=== PATIENT | female | born 1945 | race Caucasian/White ===

== ENCOUNTER → 2019-02-28 | Outpatient (CLI) | payer MEDICARE, OTHER ==
[~2019-02-28] MED LIST: CALCIUM 600 +1 EAC1 PO; CARDIZEM CD120 MG; CARDIZEM CD360 MG PO; DEXAMETHASONE 44 M1 PO; DOESN'T HAVE LIST; HYDROCHLOROTHIA25 M2; LISINOPRIL-HCT1 EAC1 PO; LISINOPRIL20 MG; METHIMAZOLE5 MG PO; NORCO 5-325 TA1 EACH PO; POTASSIUM20; PRESERVISION A1 EAC2 PO; VALIUM5 MG PO
--- NOTE | 2019-03-08 14:54 | PATH ---
[address] [address] PATHOLOGY RPT PROCEDURE Name: BESSY SCHWARTZ Room: [facility] Jackson#: [id number] Admission: 02/28/19 Date of : 49 Discharge: Report #: [id number] Path Case #: [id number] [facility] Accession Number: [id number] . 01 Material submitted: . PART A: breast - RIGHT BREAST MASS, 10:00, 2CMFN. Modifiers: right, 10:00 PART B: lymph node - LYMPH NODE RIGHT AXILLA. Modifiers: right, axilla . 01 Clinical history: . A. 4.0 x 3.96 x 3.0 cm mass at 10 o'clock position, 2 cm FN B. 1.84 x 0.83 x 1.38 cm . 02 Diagnosis: A. 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 (SEE COMMENT). . B. Lymph node-right axilla, image-guided core biopsies: - HIGH GRADE CARCINOMA, TYPICAL OF BREAST DUCTAL PRIMARY INVOLVING FIBROFATTY TISSUE AND SPANNING AT LEAST 12 MM. (SEE COMMENT). . (BERNIE:mm; 03/01/2019) [facility]/03/01/2019 . 02 Comment: Specimen type: Image-guided core biopsies Tumor site: Right breast, 10:00, 2 cm from nipple Tumor quantitation: Greater than 95% of submitted tissues Histologic type: Ductal adenocarcinoma Histologic grade: III/III Tubules, nuclei and mitoses: 3, 3, 3 LVSI: Identified Microcalcifications: Identified in tumor and non-neoplastic tissues Markers: Breast tumor profile pending Block: A1 . . In the right breast mass biopsy (A), there is no DCIS or LCIS seen. The right axilla lymph node biopsy (B) shows minimal lymphoid tissue with no definite lymph node identified and tumor involves approximately 90% of the submitted tissues. Breast tumor profile studies are pending on A1 and will be the subject of an addendum report. Specimens A and B reviewed with Dr. Quintin Weathers who agrees with the diagnoses. Ariana Dykes ([facility] Breast Navigator) notified at approximately 1255 on 03/01/2019. . (BERNIE:mm; 03/01/2019) [place] [address] PATHOLOGY RPT PROCEDURE Name: BESSY SCHWARTZ [id number] Admission: 02/28/19 Date of : 49 Discharge: Report #: [id number] Path Case #: [id number] . 02 Addendum: . . Special studies report received from [facility], [address] [place] [address], [address], [place], [address], on case [id number], labeled with their number [id number], dated 03/07/2019. . Breast/Prognostic Marker Analysis . Specimen Site: Rt Breast,Mass, Breast cancer. Specimen ID #: [id number] . . ER (Estrogen Receptor) Present/Positive Percent: 70.00% Analysis: Manual Comments: Staining Intensity: Strong . WI (Progesterone Receptor) Present/Positive Percent: 1.00% Analysis: Manual Comments: Staining Intensity: Moderate . HER2 Over-Expressed Score: 3+ Analysis: Manual . Ki-67 High Proliferation Percent: 40.00% Analysis: Manual . Time to Fixation (Cold Ischemic Time): Not Provided Duration of Fixation: Not Provided Type of Fixative: 10% Neutral Buffered Formalin . . at [facility]. Raj Menon MD Surgical Pathologist . Methodology The HER2 Receptor protein expression is analyzed using the [place] HER2 rabbit monoclonal antibody (clone 4B5). This assay is used for diagnostic determination of the HER2 protein over-expression in paraffin embedded, [place] [address] PATHOLOGY RPT PROCEDURE Name: BESSY SCHWARTZ [id number] Admission: 02/28/19 Date of : 49 Discharge: Report #: [id number] Path Case #: [id number] formalin fixed breast cancer tissue on the [employer] Benchmark. The specimen is processed using a polymer detection system. The membrane staining of the tumor is determined either by manual score or image analysis. This antibody is intended for in vitro diagnostic use. The score is reported as per package insert; 0, 1+, 2+, and 3+. This test is used for clinical purposes. . A rabbit monoclonal antibody (clone SP1) that recognized the Estrogen Receptor is used to perform immunohistochemistry on routinely fixed (formalin) paraffin embedded tissue on the [place] Benchmark. The specimen is processed using a polymer detection system. The percentage of stained tumor nuclei is determined either manually or by image analysis. This test is intended for in vitro diagnostic use. This test is used for clinical purposes. . A rabbit monoclonal antibody (clone 1E2) that recognized the Progesterone Receptor is used to perform immunohistochemistry on routinely fixed (formalin) paraffin embedded tissue on the [place] Benchmark. The specimen is processed using a polymer detection system. The percentage of stained tumor nuclei is determined either manually or by image analysis. This test is intended for in vitro diagnostic use. This test is used for clinical purposes. . A rabbit monoclonal antibody (clone 30-9) that recognized Ki67 is used to perform immunohistochemistry on routinely fixed (formalin) paraffin embedded tissue on the [place] Benchmark. The specimen is processed using a polymer detection system. The percentage of stained tumor nuclei is determined either manually or by image analysis. This test is intended for in vitro diagnostic use. This test is used for clinical purposes. . Intended Use: This antibody is intended for in vitro diagnostic (IVD) use. HER2 (4B5) is a rabbit monoclonal antibody intended for the semi-quantitative detection of HER2 antigen in sections of formalin-fixed, paraffin embedded normal and neoplastic tissue. . This antibody is intended for in vitro diagnostic (IVD) use. Estrogen Receptor (ER) (SP1) is a rabbit monoclonal antibody (IgG) that is intended for the qualitative detection of estrogen receptor (ER) antigen in sections of formalin-fixed, paraffin-embedded tissue. ER is a rabbit monoclonal antibody that recognizes human estrogen receptor alpha. . This antibody is intended for in vitro diagnostic (IVD) use. Progesterone Receptor (WI) (1E2) is a rabbit monoclonal antibody (IgG) that is intended for the qualitative detection of progesterone receptor (WI) antigen in sections of formalin fixed, paraffin embedded tissue. WI is a rabbit monoclonal antibody that recognizes the A and B forms of the human progesterone [place] [address] PATHOLOGY RPT PROCEDURE Name: BESSY SCHWARTZ Room: [facility]#: [id number] Admission: 02/28/19 Date of : 49 Discharge: Report #: [id number] Path Case #: [id number] This antibody is intended for in vitro diagnostic (IVD) use. Ki-67 (30-9) is a rabbit monoclonal antibody (IgG) directed against C-terminal portion of Ki-67 antigen. Staining for Ki-67 can be used to aid in assessing the proliferative activity of normal and neoplastic tissue. Ki-67 is a nuclear protein expressed in proliferating cells. During the cell cycle, the Ki-67 antigen is present in the G1, S, G2 and M phase but is absent in the G0 (quiescent phase). . . Disclaimer: This Test was performed by [facility] at [address], [place] [address], [place], [address]. . [facility] is a business unit of [facility]. a wholly-owned subsidiary of [employer]. . This assay has not been validated on decalcified tissues. Results should be interpreted with caution if this specimen was decalcified given the likelihood of false negativity on decalcified specimens. . Any image(s) that accompany this report is/are a food products sales representative image(s) only and should not be used to render a diagnosis. . This interpretation is contingent on the specimen and the clinical information received. . For any special tests/stains performed, known positive cells or tissues are tested with each marker and examined to ensure positivity. Positive and negative internal controls, if present, react appropriately. . This analysis is an adjunct to the evaluation of the referring physician and does not represent a final diagnosis. . The immunohistochemistry tests performed at [facility]. were validated on tissue fixed in 10% neutral buffered formalin. The performance characteristics of the tests performed on tissue processed in other fixatives is not known. . HER2 testing at [facility]., is performed in compliance with the 2018 updated ASCO/CAP Clinical Practice Guideline Focused Update. If the result is EQUIVOCAL (2+), it must be confirmed by an alternative assay such as FISH or Dual LORE. REF: Sean HA, CODY Suarez et al: Human Epidermal Growth Factor Receptor 2 Testing in Breast Cancer: ASCO/CAP Clinical Practice Guideline Focused Update. J Clin Oncol 36:9902-2485, 2018. . HER2 and ER/WI ASCO/CAP guidelines require fixation in neutral buffered formalin for a minimum of 6 and a maximum of 72 hours[place] [address] PATHOLOGY RPT PROCEDURE Name: BESSY SCHWARTZ Room: [facility] RAYMUNDO Paz#: [id number] Admission: 02/28/19 Date of : 49 Discharge: Report #: [id number] Path Case #: [id number] than 6 hours may not adequately preserve cell proteins. Fixation times longer than 72 hours may cause excess cross-linking of proteins reducing the antigen available for staining. Either scenario can cause reduced staining; hence false negative results are possible and should be considered for these situations if the HER2 IHC score is less than 3+ or ER or WI is negative (no staining or <1% positive). It is recommended that specimens fixed longer than 72 hours with HER2 IHC scores less than 3+ be confirmed by HER2 FISH or Dual LORE. The time from biopsy/excision to fixation in formalin (cold ischemic time) must be less than 1 hour. Time to fixation (cold ischemic time) greater than 1 hour should be interpreted with caution. HER2 testing, mainly HER2 by FISH, is particularly vulnerable since excessive cold ischemic time results in preferential loss of HER2 probe signals that may lead to false negative results. . SCORE STAINING PATTERN IN TUMOR CELLS INTERPRETATION RESULTS 0 No staining observed or incomplete, faint membrane staining in less than or equal to 10% of tumor cells. Negative 1+ Incomplete, faint membrane staining in greater than 10% of tumor cells. Negative 2+ Weak to moderate complete membrane staining observed in greater than 10% of tumor cells. Equivocal* *Must be confirmed by alternative assay (IHC/FISH/Dual LORE) 3+ Intense, complete membrane staining in greater than 10% of tumor cells. Positive . A complete copy of the report is on file. . Professional and Technical services performed by [facility]. at [address] [address]. . (AMJ 03/08/2019) . This case was prepared and proofread by Dr. Wyatt Huggins and electronically signed by Dr. Quintin Weathers. . AZ[facility]/03/08/2019 Addendum Electronically Signed by Pasha Weathers MD, Pathologist . 02 Electronically signed: . Wyatt Huggins MD, Pathologist NPI- [id number] . [address] [place] [address] PATHOLOGY RPT PROCEDURE Name: BESSY SCHWARTZ Room: [facility]#: [id number] Admission: 02/28/19 Date of : 49 Discharge: Report #: [id number] Path Case #: [id number] Gross description: . A. Received in formalin labeled "Bessy Schwartz, right breast BX," are multiple needle cores of yellow-chaves fibrofatty tissue measuring 1.8 x 0.6 x 0.2 cm in aggregate dimensions. The tissue is submitted in its entirety in cassettes A1 through A3. The cold ischemic time is 2 minutes. The total formalin fixation time is 9 hours and 50 minutes. . B. Received in formalin labeled "Bessy Schwartz, right axilla," are 3 distinct needle cores of velez soft tissue ranging from 1.5 to 1.8 cm in length and measuring less than 0.1 cm each in diameter. The specimen is submitted entirely in cassettes B1 through B3. (TSD; 02/28/2019) TOB/TOB . 02 Pathologist provided ICD-10: C50.911, C77.3 . 02 CPT . 072955, 734783 Specimen Comment: A courtesy copy of this report has been sent to Specimen Comment: [phone], , , . Specimen Comment: Report sent to ,DR MCDOWELL,DR MANDEL / DR BLOUNT Performed at: [address] [facility] [address], [place], [place] [id number] MD Omar March MD Phone: [phone] Performed at: 02 [facility] [place] [address] [address], [place], [place] [id number] MD Wyatt Huggins MD Phone: [phone]
== END ==
LOC: M.ULTRA 09:07 → M.RAD 10:00 → M.ULTRA 10:30
DX: C50.411 Malignant neoplasm of upper-outer quadrant of right female breast (principal); C77.3 Secondary and unspecified malignant neoplasm of axilla and upper limb lymph nodes; I10 Essential (primary) hypertension; F32.9 Major depressive disorder, single episode, unspecified; G43.909 Migraine, unspecified, not intractable, without status migrainosus; E05.90 Thyrotoxicosis, unspecified without thyrotoxic crisis or storm; Z88.8 Allergy status to other drugs, medicaments and biological substances; Z88.0 Allergy status to penicillin; Z79.891 Long term (current) use of opiate analgesic; Z79.899 Other long term (current) drug therapy; Z90.49 Acquired absence of other specified parts of digestive tract; Z98.49 Cataract extraction status, unspecified eye; Z98.890 Other specified postprocedural states

== ENCOUNTER → 2019-03-16 | Day surgery (SDC) | payer MEDICARE, OTHER ==
[2019-03-16 14:05] LABS: HEMATOCRIT 42.9 % (37.0-47.0); HEMOGLOBIN 14.1 gm/dL (12.0-15.0); MCHC 32.8 g/dL (28.0-37.0); MCV 85.3 fL (80.0-100.0); MPV 7.5 fl. (7.2-11.1); RBC 5.03 mil/uL (4.20-5.00); WBC 8.2 thou/uL (4.0-11.0)
[2019-03-16 14:14] LABS: CALCIUM 9.1 mg/dL (8.5-10.1); CREATININE 0.8 mg/dL (0.6-1.3); POTASSIUM 3.5 mmol/L (3.5-5.1)
[2019-03-16 14:18] LABS: ALBUMIN 3.4 g/dL (3.4-5.0); TOTAL BILIRUBIN 0.5 mg/dL (<0.1-1.0); TOTAL PROTEIN 6.8 g/dL (6.4-8.2)
--- NOTE | 2019-03-16 15:24 | EKG ---
[place] [address] ELECTROCARDIOGRAM REPORT Name: CAREY BROWNING Room: [facility]#: [id number] Admission: 03/16/19 Attend Phys: Emigdio Ortiz DO Discharge: Date of : 49 Report #: [id number] THIS REPORT FOR: //name// [facility] Test Date: 2019-03-16 Test Time: 13:30:53 Pat Name: CAREY BROWNING Department: Room: Gender: F Grain Elevator Worker: PIERRE : 1945 Requested By: Emigdio Ortiz Order Number: [id number] Reading MD: Henri Shaw Measurements Intervals Velarde Rate: 86 P: 43 GA: 124 QRS: -17 QRSD: 97 T: 39 QT: 371 QTc: 444 Interpretive Statements Sinus rhythm Borderline left axis deviation Compared to ECG 04/25/2016 22:40:33 Sinus tachycardia no longer present Electronically Signed On 03-16-2019 15:24:38 CDT by Henri Shaw [email or web address] <ELECTRONICALLY SIGNED> By: Henri Shaw MD, [facility] 03/16/19 1524 1330 1330 Henri Shaw MD, FACC /EPI
--- NOTE | 2019-03-26 16:21 | OP ---
[address] [address] OPERATIVE REPORT Name: CAREY BROWNING Room: [facility].#: [id number] Admission: 03/16/19 Attend Phys: Emigdio Ortiz DO Discharge: Date of : 49 Report #: [id number] THIS REPORT FOR: //name// CC: Emigdio Blount MD DICTATED BY: Doreen Livingston DO DATE OF SERVICE: 03/16/2019 Doreen Livingston DO, PGY1 dictating operative report for Emigdio Ortiz DO. PREOPERATIVE DIAGNOSES: Right breast cancer and thyroid mass. POSTOPERATIVE DIAGNOSES: Right breast cancer and thyroid mass. PROCEDURE PERFORMED: Left subclavian chemo port with fluoroscopy and surgeon interpretation of images. PRIMARY SURGEON: Emigdio Ortiz DO. FOREST SCIENCE PROFESSOR: Doreen Livingston DO, PGY1. SECOND OPEN CLAIMS REPRESENTATIVE: Sujit Mcmillan DO, PGY2. ANESTHESIA: General LMA. ESTIMATED BLOOD LOSS: 10 mL. COMPLICATIONS: None. INDICATION FOR PROCEDURE: The patient is a 73-year-old female who presented to our office on Tuesday this week after being diagnosed with right breast cancer. She had noticed some nipple retraction earlier this month and subsequently got a mammogram. Mammogram showed a large area of increased density in the upper outer right breast with speculation concerning for malignancy as well as some diffuse skin thickening as well as possible enlarged lymph nodes in the right axilla. Pathology from biopsy showed infiltrating ductal carcinoma, high grade. She also had biopsy of a right axillary lymph node that indicated high-grade carcinoma there as well. She is also currently undergoing workup for a left-sided thyroid nodule. She has followed up with Dr. Watson who wanted a chemo port placement as soon as possible, so the [place] [address] OPERATIVE REPORT Name: CAREY BROWNING Room: [facility].#: [id number] Admission: 03/16/19 Attend Phys: Emigdio Ortiz DO Discharge: Date of : 49 Report #: [id number]. DESCRIPTION OF PROCEDURE: Informed consent was obtained. The patient was then taken to the operating room and placed supine on the operating room table. Preoperative antibiotics were given. SCDs were placed on bilateral lower extremities. The patient's arms were tucked at her side. She was then prepped and draped in standard sterile fashion. Timeout was performed to ensure correct patient and procedure. The patient was then placed in Trendelenburg. Procedure began by accessing the left subclavian vein using 18-gauge finder needle. Needle was inserted and introduced at the inferior aspect of the clavicle, then dove down beneath the clavicle, accessed the left subclavian vein with return of dark venous blood. The guidewire was then introduced through the needle. At this point, C-arm was brought in to ensure correct placement of guidewire. It was confirmed to be in good position. Our finder needle was then removed leaving the guidewire in place. We then began by making a 4-cm incision just lateral to our guidewire using a #15 blade scalpel to form our pocket for the port. Incision was carried down through the subcutaneous tissue using electrocautery until we reached the level of the fascia. Once we reached the fascia, a pocket was developed using blunt dissection. Pocket large enough to fit our chemo port was formed. Once this was done, we freed our guidewire from surrounding skin attachments. At this point, we were ready to introduce the dilator. C-arm was brought back in. Dilator was introduced under fluoroscopy, ensuring correct position. Once this was done, we then removed our guidewire, covered the opening at the end of the dilator. Our previously flushed catheter was then introduced through the dilator. This was done under direct fluoroscopy to ensure correct positioning in the superior vena cava. Once catheter was in good position, we then removed the breakaway introducer without difficulty while maintaining catheter in good position. The guidewire within the catheter was then removed. Once this was removed, our catheter was then trimmed to fit onto our port within the pocket. Catheter was attached to the top of our port and snapped into place in the standard fashion. Prior to attaching catheter to port, we did attach a syringe with sterile saline, aspirated and flushed catheter. We were able to aspirate dark venous blood. Catheter flushed easily without any difficulty. Once our catheter was attached to our port, 2-0 Prolene suture was used to suture our catheter and placed within the pocket at three points. We then flushed the port using sterile saline with a Lentz needle attached to the syringe. Port aspirated and flushed easily without any difficulty. We then brought the C-arm in for a final check of our catheter placement. We confirmed good catheter placement within the superior vena cava just superior to the right atrium. C-arm was taken away. Port was then flushed with 3 mL of heparin with 1000 units per mL of heparin. Subcutaneous tissue was then closed over a port using 3-0 Vicryl suture in simple interrupted fashion. Skin was closed using 4-0 Monocryl suture in a running subcuticular fashion. Skin was cleansed and dried. Sterile dressing was applied using Mastisol, Steri-Strips, Tegaderms, 4 x 4s and Medipore tape. The patient tolerated the procedure well. She was allowed to awaken in the operating [place] [address] OPERATIVE REPORT Name: CAREY BROWNING Room: [facility].#: [id number] Admission: 03/16/19 Attend Phys: Emigdio Ortiz DO Discharge: Date of : 49 Report #: [id number] transferred to the PACU in stable condition. A postprocedure chest x-ray was performed in the PACU. A port placement was confirmed with postoperative chest x-ray. No pneumothorax was seen on her postoperative chest x-ray. <ELECTRONICALLY SIGNED> By: Emigdio Ortiz DO 03/26/19 1621 1540 1622Afede Ortiz DO /nt
== END | disposition home or self-care (01) ==
LOC: M.SUR 06:17
PROVIDERS: Surgery
DX: Z45.2 Encounter for adjustment and management of vascular access device (principal); C50.911 Malignant neoplasm of unspecified site of right female breast; E07.89 Other specified disorders of thyroid; I10 Essential (primary) hypertension; F32.9 Major depressive disorder, single episode, unspecified; G43.909 Migraine, unspecified, not intractable, without status migrainosus; Z79.899 Other long term (current) drug therapy; Z98.890 Other specified postprocedural states; Z90.49 Acquired absence of other specified parts of digestive tract; Z88.8 Allergy status to other drugs, medicaments and biological substances

== ENCOUNTER → 2019-03-16 | Outpatient (CLI) | payer MEDICARE, OTHER ==
--- NOTE | ~2019-03-16 | CON ---
[address] [address] CONSULTATION Name: CAREY BROWNING [facility] [id number] Admission: 03/16/19 Attend Phys: David Newell MD Discharge: Date of : 49 Report #: [id number] THIS REPORT FOR: //name// CC: David Blount DATE OF SERVICE: 03/16/2019 RADIATION ONCOLOGY CONSULTATION [facility] phone is [phone]. REFERRING PHYSICIANS: Include Dr. Hayley Blount, Dr. Emigdio Ortiz, Dr. Kay Watson and Dr. Fair. PRIMARY SITE AND HISTOPATHOLOGY: The patient has a locally advanced right breast cancer. HISTORY OF PRESENT ILLNESS: The patient had stressful months since one of her sons was diagnosed with metastatic melanoma that involved the brain. Then about 6 weeks ago, which would have been about mid to late December, she noticed a mass involving the right breast. She denied having any nipple discharge. She was cleaning her house and noticed that her breast was bothering her more and then when she examined the breast, she noted a mass involving the right breast. She was then seen by her primary care physician, Dr. Blount and he ordered mammograms. She had a mammogram of both breasts on 06/27/2018, which was unremarkable, that was done at [facility] and then, she had a unilateral right mammogram performed at [facility], which revealed a mass in the upper outer right breast that measured 4.5 x 3.3 cm. The patient also had an ultrasound of that area, which revealed irregular contours and a mass at the 10 o'clock position of the right breast that measured 4 x 4 x 3 cm and she went on to have a biopsy of that area on 02/28/2019 and the pathology revealed a high grade infiltrating ductal carcinoma in the breast that measured 1.3 cm and there was also a biopsy of the right axillary area that revealed also a high grade ductal carcinoma measuring 1.2 cm. The markers were 70% estrogen receptor positive, 1% progesterone receptor positive and was HER2/surinder positive. The patient saw the medical oncologist, Dr. Watson who started neoadjuvant chemotherapy and it appears it will consist of neoadjuvant Herceptin, Taxotere, carboplatin, Perjeta. The patient presents to discuss the role of radiation therapy in the care of her breast cancer. PAST MEDICAL HISTORY: Includes history of cataracts, history of migraine headaches, history of chronic hearing loss, hypertension and depression. PAST SURGICAL HISTORY: She had a cholecystectomy in 2002 and removal of a noncancerous thyroid growth in 2003 and she [place] [address] CONSULTATION Name: CAREY BROWNING [id number] Admission: 03/16/19 Attend Phys: David Newell MD Discharge: Date of : 49 Report #: [id number] hyperthyroidism. MEDICATIONS: The patient takes lisinopril/hydrochlorothiazide, potassium supplements, diltiazem, calcium and PreserVision vitamins. ALLERGIES: CEPHALOSPORINS. OBSTETRICS AND GYNECOLOGY: Menarche at age 16, menopause at age 52. She is 3, para 3. FAMILY HISTORY: Son has melanoma. SOCIAL HISTORY: The patient is retired. She is . Ethanol, she does not drink alcohol containing beverages. Cigarettes, she does not smoke cigarettes. REVIEW OF SYSTEMS: GENERAL: The patient had about 10 pound weight loss in the past month. SKIN: She denied having any color changes or itching. LYMPH NODES: She denied having any enlarged or painful glands in the neck. ENDOCRINE: She denied having any hot or cold intolerance. HEMATOLOGY AND IMMUNOLOGY: The patient denied having any anemia or recent bleeding. MUSCULOSKELETAL: The patient does have arthritis and back pain. HEAD AND NECK: The patient has migraines, vertigo and chronic tinnitus. RESPIRATORY: The patient denied having any shortness of breath. CARDIOVASCULAR: The patient says in the past, she has had intermittent irregular heartbeats, mostly tachycardia, which may be from her hyperthyroidism and she follows up with her mold sander, Dr. Cee. GASTROINTESTINAL: She denied having any nausea or vomiting. NEUROLOGIC: She denied having any focal weakness. PHYSICAL EXAMINATION: With my nurse, Elva De Oliveira present: VITAL SIGNS: Height 5 feet 1 inch, weight 170.8 pounds, blood pressure 137/77, pulse 96, respirations 18, oxygen saturation 96%. LYMPH NODES: She has palpable right axillary lymph node measuring 3.5 x 2.5 cm. She also has a palpable mass in the inverted nipple of the right breast that is around the upper outer quadrant of the right breast measuring 7 x 5 x 4.5 cm. There are no other suspicious palpable masses involving the right breast or left breast. She had no cervical, supraclavicular lymphadenopathy. She did have right axillary lymphadenopathy as noted. PSYCHIATRIC: The patient was alert, oriented, in no acute distress. HEART: Had a regular rate and rhythm without murmur. LUNGS: Clear to auscultation. ABDOMEN: Nontender. Spleen was not palpable. Liver was at the costal margin. EXTREMITIES: Had no clubbing, cyanosis or edema. NEUROLOGIC: Cranial nerves 2-12 are intact. Sensation was intact. She has 5/[address] [place] [address] CONSULTATION Name: CAREY BROWNING Room: [facility]#: [id number] Admission: 03/16/19 Attend Phys: David Newell MD Discharge: Date of : 49 Report #: [id number] strength in her extremities. LABORATORY DATA: From 03/14/2019, hemoglobin 14.6, platelets 253,000, white blood cell count 8.3. Sodium 141, potassium 3.7, BUN 21, creatinine 0.78 and AST 13. ASSESSMENT AND PLAN: The patient has locally advanced right breast cancer. She is receiving neoadjuvant chemotherapy/Herceptin/Perjeta. The patient was also offered radiation therapy after her chemotherapy and surgery to further reduce the chance of recurrence of the breast cancer. She may either undergo breast conservation therapy versus mastectomy. She undergoes breast conservation therapy. The efficacy of radiation therapy in that situation can be found in a retrospective study by Dr. Upton, which they looked at 340 patients treated with neoadjuvant chemotherapy plus breast conservation therapy with a local failure rate of 5% at 5 years, which they felt was acceptable. In terms of radiation therapy after mastectomy, there are studies out from [place] and [place] indicating about the survival benefit and local control benefit when they received radiation therapy, so the risks, benefits, logistics of radiation therapy were explained to the patient in detail. The patient gave her witnessed, informed consent to proceed with radiation therapy. Again, at this point, she is undergoing neoadjuvant chemotherapy, so she was asked to follow up with me in about 3-4 months so we can check her status at that time and the radiation therapy will ultimately be scheduled after she heals up from her surgery. By: 1136 1924Dnimco Newell MD /yara
== END ==
LOC: M.RTH 00:13
DX: C50.411 Malignant neoplasm of upper-outer quadrant of right female breast (principal); G43.909 Migraine, unspecified, not intractable, without status migrainosus; I10 Essential (primary) hypertension; F32.9 Major depressive disorder, single episode, unspecified; Z79.899 Other long term (current) drug therapy; Z90.49 Acquired absence of other specified parts of digestive tract

== ENCOUNTER → 2019-03-20 | Outpatient (CLI) | payer MEDICARE, OTHER ==
--- NOTE | 2019-03-20 11:31 | 2DMMODE ---
[place] [address] 2 D/M-MODE ECHOCARDIOGRAM Name: CAREY BROWNING BRANDAN Room: [facility]#: [id number] Admission: 03/20/19 Attend Phys: Kay Watson MD Discharge: Date of : 49 Date of Service: 03/20/19 1130 Report #: [id number] THIS REPORT FOR: //name// APPROVED REPORT Study performed: 03/20/2019 10:19:09 EXAM: Comprehensive 2D, Doppler, and color-flow Echocardiogram Patient Location: Out-Patient Status: routine BSA: 1.75 HR: 79 bpm BP: 120/78 mmHg Rhythm: NSR Other Information Study Quality: Good Indications CANCER 2D Dimensions IVSd: 10.16 (7-11mm) LVOT Diam: 18.90 (18-24mm) LVDd: 40.77 mm PWd: 8.65 (7-11mm) Ascending Ao: 30.38 (22-36mm) LVDs: 24.72 (25-40mm) Aortic Root: 29.84 mm Volumes Left Atrial Volume (Systole) LA ESV Index: 22.00 mL/m2 Aortic Valve AoV Peak Kwan.: 1.42 m/s AO Peak Gr.: 8.04 mmHg LVOT Max P.67 mmHg AO Mean Gr.: 4.35 mmHg LVOT Mean P.69 mmHg LVOT Max V: 0.96 m/s AO V2 VTI: 27.86 cm LVOT Mean V: 0.59 m/s JENNIFER (VTI): 2.16 cm2 LVOT V1 VTI: 21.49 cm Mitral Valve E/A Ratio: 0.74 MV Decel. Time: 174.04 ms MV E Max Kwan.: 0.80 m/[place] [address] 2 D/M-MODE ECHOCARDIOGRAM Name: CAREY BROWNING Room: [facility]#: [id number] Admission: 03/20/19 Attend Phys: Kay Watson MD Discharge: Date of : 49 Date of Service: 03/20/19 1130 Report #: [id number] MV PHT: 50.47 ms MVA (PHT): 4.36 cm2 TDI E/Lateral E': 8.89 E/Medial E': 6.67 Medial E' Kwan.: 0.12 m/s Lateral E' Kwan.: 0.09 m/s Pulmonary Valve PV Peak Kwan.: 0.87 m/s PV Peak Gr.: 3.04 mmHg Tricuspid Valve RAP Estimate: 5.00 mmHg TR Peak Gr.: 23.33 mmHg RVSP: 28.00 mmHg PA Pressure: 28.00 mmHg Left Ventricle The left ventricle is normal size. There is normal LV segmental wall motion. There is normal left ventricular wall thickness. Left ventricular systolic function is normal. The left ventricular ejection fraction is within the normal range. LVEF is 60%. Grade I - abnormal relaxation pattern. Right Ventricle Right ventricle is borderline dilated. The right ventricular systolic function is normal. Atria The left atrium size is normal. The right atrium size is normal. Aortic Valve The aortic valve is normal in structure. No aortic regurgitation is present. There is no aortic valvular stenosis. Mitral Valve There is mitral annular calcification. Mild mitral regurgitation. No evidence of mitral valve stenosis. Tricuspid Valve The tricuspid valve is normal in structure. Trace tricuspid regurgitation. No pulmonary hypertension. Pulmonic Valve The pulmonary valve is normal in structure. Trace pulmonic [place] [address] 2 D/M-MODE ECHOCARDIOGRAM Name: CAREY BROWNINGN Room: [facility]#: [id number] Admission: 03/20/19 Attend Phys: Kay Watson MD Discharge: Date of : 49 Date of Service: 03/20/19 1130 Report #: [id number] Great Vessels The aortic root is normal in size. IVC is normal in size and collapses >50% with inspiration. Pericardium There is no pericardial effusion. <Conclusion> The left ventricle is normal size. There is normal LV segmental wall motion. LVEF is 60%. Grade I - abnormal relaxation pattern. There is no aortic valvular stenosis. No aortic regurgitation is present. No evidence of mitral valve stenosis. Mild mitral regurgitation. Right ventricle is borderline dilated. The right ventricular systolic function is normal. Trace tricuspid regurgitation. No pulmonary hypertension. <ELECTRONICALLY SIGNED> By: Gabriel Spear MD, FACC 03/20/19 1130 1130 1130 Gabriel Spear MD, FACC /INF
== END ==
LOC: M.NUC 09:47
DX: I05.9 Rheumatic mitral valve disease, unspecified (principal); I34.0 Nonrheumatic mitral (valve) insufficiency; C50.919 Malignant neoplasm of unspecified site of unspecified female breast; M19.012 Primary osteoarthritis, left shoulder; M19.011 Primary osteoarthritis, right shoulder; M19.072 Primary osteoarthritis, left ankle and foot; M19.071 Primary osteoarthritis, right ankle and foot; M41.86 Other forms of scoliosis, lumbar region; M41.84 Other forms of scoliosis, thoracic region

== ENCOUNTER → 2019-03-21 | Outpatient (CLI) | payer MEDICARE, OTHER ==
[2019-03-21 10:58] LABS: CREATININE 0.8 mg/dL (0.6-1.3)
== END ==
LOC: M.LAB 10:21 → M.MRI 11:30
PROVIDERS: Surgery
DX: C50.811 Malignant neoplasm of overlapping sites of right female breast (principal)

== ENCOUNTER 2019-07-08 21:58 | Emergency (ER) | payer MEDICARE, OTHER ==
[~2019-07-08] VITALS: Ht 154.9 cm; Wt 68.5 kg
[2019-07-08] MEDS ORDERED: ZOVIRAX200 MG PO (22:16)
[2019-07-08] MEDS ORDERED: LOMOTIL TABLET1 EACH PO (22:17)
[2019-07-08] MEDS ORDERED: MAGOX 400400 MG PO (22:19)
[2019-07-08] MEDS ORDERED: LIDOCAINE-PRIL1 EACH TOP (22:19)
[2019-07-08] MEDS ORDERED: SENNA8.6 MG PO (22:19)
[2019-07-08] MEDS ORDERED: CINVANTI130 MG/18 IV (22:21)
[2019-07-08] MEDS ORDERED: TAXOTERE20 MG/1 ML IV (22:22)
[2019-07-08] MEDS ORDERED: CARBOPLATI10 MG/1 ML IV (22:22)
[2019-07-08] MEDS ORDERED: ALOXI0.25 MG/5 IV (22:22)
[2019-07-08] MEDS ORDERED: HERCEPTIN150 MG IV (22:23)
[2019-07-08] MEDS ORDERED: NEULASTA6 MG/0.6 M SUBQ (22:23)
[2019-07-08] MEDS ORDERED: PERJETA420 MG/14 IV (22:23)
[2019-07-08 23:02] LABS: HEMATOCRIT 33.7 % (37.0-47.0); HEMOGLOBIN 11.6 gm/dL (12.0-15.0); MCH 31.6 pg (26.0-34.0); MCHC 34.4 g/dL (28.0-37.0); MCV 92.1 fL (80.0-100.0); MPV 8.9 fl. (7.2-11.1); NUCLEATED RBCS 0 /100WBC; PLATELET COUNT* 100 thou/uL (150-400); RBC 3.66 mil/uL (4.20-5.00); WBC 10.7 thou/uL (4.0-11.0)
[2019-07-08 23:10] LABS: ANION GAP 12 mmol/L (7-16); BUN 18 mg/dL (7-18); CALCIUM 8.1 mg/dL (8.5-10.1); CHLORIDE 100 mmol/L (98-107); CO2 24 mmol/L (21-32); CREATININE 0.8 mg/dL (0.6-1.3); GLUCOSE 88 mg/dL (70-99); POTASSIUM 3.4 mmol/L (3.5-5.1); SODIUM 136 mmol/L (136-145)
[2019-07-08 23:19] LABS: ALBUMIN 3.1 g/dL (3.4-5.0); ALKALINE PHOSPHATASE 67 U/L (46-116); SGOT 24 U/L (15-37); SGPT 37 U/L (30-65); TOTAL BILIRUBIN 0.7 mg/dL (<0.1-1.0); TOTAL PROTEIN 5.8 g/dL (6.4-8.2); TROPONIN-I LEVEL <0.06 ng/mL (<0.06)
[2019-07-09 00:04] VITALS: BP 136/72
[2019-07-09 00:04] LABS: ABSOLUTE LYMPHOCYTES 1.5 thou/uL (0.8-5.3); ABSOLUTE MONOCYTES 0.1 thou/uL (0.0-1.2); ABSOLUTE NEUTROPHILS 9.1 thou/uL (1.6-8.1); ANISOCYTOSIS Occasional; PLATELET ESTIMATE DECREASED; TOXIC GRANULATION 1+
--- NOTE | 2019-07-09 17:15 | EKG ---
[place] [address] ELECTROCARDIOGRAM REPORT Name: CAREY BROWNING BRANDAN [id number] Admission: 07/08/19 Attend Phys: Discharge: 07/09/19 Date of : 49 Report #: [id number] THIS REPORT FOR: //name// [facility] ED Test Date: 2019-07-08 Test Time: 23:10:58 Pat Name: CAREY BROWNING Department: Room: Gender: F Ob Tech: DREW : 1945 Requested By: Karma Gonzalez Order Number: [id number] MD: Henri Shaw Measurements Intervals [place] Rate: 93 P: 33 TN: 123 QRS: -24 QRSD: 97 T: 31 QT: 345 QTc: 430 Interpretive Statements Sinus rhythm Ventricular premature complex Inferior infarct, old Compared to ECG 03/16/2019 13:30:53 Ventricular premature complex(es) now present Electronically Signed On 07-09-2019 17:14:57 CDT by Henri Shaw [email or web address] <ELECTRONICALLY SIGNED> By: Henri Shaw MD, [facility] 07/09/19 1714 231 09 Henri Shaw MD, FACC /EPI
== END 2019-07-09 00:05 | disposition home or self-care (01) ==
LOC: M.ERS 21:58
PROVIDERS: Personal Emergency Response Attendant
DX: I16.0 Hypertensive urgency (principal); I10 Essential (primary) hypertension; K21.9 Gastro-esophageal reflux disease without esophagitis; Z90.89 Acquired absence of other organs; Z90.49 Acquired absence of other specified parts of digestive tract; Z95.3 Presence of xenogenic heart valve; Z88.0 Allergy status to penicillin

== ENCOUNTER → 2019-07-18 | Outpatient (CLI) | payer MEDICARE, OTHER ==
[~2019-07-18] MED LIST changes: +ALOXI0.25 MG/5 IV; +CARBOPLATI10 MG/1 ML IV; +CINVANTI130 MG/18 IV; +HERCEPTIN150 MG IV; +LIDOCAINE-PRIL1 EACH TOP; +LOMOTIL TABLET1 EACH PO; +MAGOX 400400 MG PO; +NEULASTA6 MG/0.6 M SUBQ; +PERJETA420 MG/14 IV; +SENNA8.6 MG PO; +TAXOTERE20 MG/1 ML IV; +ZOVIRAX200 MG PO
== END ==
LOC: M.MRI 07-11 16:30
DX: C50.411 Malignant neoplasm of upper-outer quadrant of right female breast (principal); K76.89 Other specified diseases of liver

== ENCOUNTER → 2019-08-03 | Outpatient (CLI) | payer MEDICARE, OTHER ==
[~2019-08-03] MED LIST changes: +LOMOTIL 2.5-0.01 TAB PO; +ONDANSETRON HCL4 M3 PO
--- NOTE | 2019-08-04 10:01 | ONC ---
[address] [address] RADIATION ONCOLOGY NOTE Name: CAREY BROWNING Room: [facility].#: [id number] Admission: 08/03/19 Attend Phys: David Newell MD Discharge: Date of : 49 Report #: [id number] THIS REPORT FOR: //name// CC: David Fair DATE OF SERVICE: 08/03/2019 RADIATION ONCOLOGY FOLLOWUP NOTE [facility] PRIMARY SITE AND HISTOPATHOLOGY: The patient has a locally advanced right breast cancer and was undergoing neoadjuvant Herceptin, Taxotere, carboplatinum. The breast cancer was 70% estrogen receptor positive, 1% progesterone receptor positive and HER2/surinder positive. INTERVAL NOTE: The patient was receiving chemotherapy under the direction of her medical oncologist, Dr. Watson. She was seen by her nurse practitioner, Tracy Beal on 07/26/2019 and at that time she completed 6 cycles of neoadjuvant chemotherapy consisting of Herceptin, Taxotere and carboplatinum. She will continue Herceptin therapy. She had an MRI of the breast on 07/18/2019 at [facility], which showed no residual mass in the right breast and resolution of the previously enlarged right axillary lymph nodes. She had a biopsy of the breast and the lymph node on 02/28/2019 which showed high-grade infiltrating ductal carcinoma at that time. SOCIAL HISTORY: The patient is retired. She is . Cigarettes: she does not smoke cigarettes. Her son recently from metastatic melanoma. REVIEW OF SYSTEMS: RESPIRATORY: Breathing was stable. She was not short of breath. MUSCULOSKELETAL: She has good range of motion in her upper extremities. PHYSICAL EXAMINATION: VITAL SIGNS: Her weight was 145 pounds on 08/03/2019, she was 170.8 pounds on 03/16/2019. Her blood pressure was 137/86, pulse 120, respirations 18, oxygen saturation was 97%. LYMPH NODES: She had no palpable cervical lymph nodes. HEART: Had a regular rate and rhythm without murmur. LUNGS: [place] [id number] RADIATION ONCOLOGY NOTE Name: CAREY BROWNING Room: [facility]#: [id number] Admission: 08/03/19 Attend Phys: David Newell MD Discharge: Date of : 49 Report #: [id number] LABORATORY AND DIAGNOSTIC DATA: Laboratory data from 07/26/2019, hemoglobin 10.2, platelets 115,000, white blood cells 3.5. Sodium 143, potassium was slightly lower than normal at 3.1 that continues to be followed by her medical oncologist. ASSESSMENT AND PLAN: 1. History of right breast cancer She said that she will have an appointment with her surgeon, Dr. Ortiz in about a week, so she can schedule surgery for her breast cancer. She appears to be leaning towards breast conservation therapy, since she had a good response to chemotherapy. She said that she is planning on seeing her medical oncologist, Dr. Watson, about 2 weeks after that. She was asked to schedule a follow up appointment with me in approximately 6-8 weeks from today to review her pathology and discuss the role of adjuvant radiation therapy. 2. Hypokalemia- is being followed by her medical oncologist, Dr. Watson. 3. Hypertension- The patient takes lisinopril/hydrochlorothiazide and that is managed by her referring physicians. Thank you for allowing me to participate in the care of this patient. <ELECTRONICALLY SIGNED> By: David Newell MD 08/04/19 1001 1103 1130Damar Newell MD /nt
== END ==
LOC: M.RTH 07-20 09:00
DX: Z08 Encounter for follow-up examination after completed treatment for malignant neoplasm (principal); E87.6 Hypokalemia; I10 Essential (primary) hypertension; Z85.3 Personal history of malignant neoplasm of breast

== ENCOUNTER → 2019-08-20 | Day surgery (SDC) | payer MEDICARE, OTHER ==
[2019-08-20 07:45] LABS: HEMATOCRIT 31.3 % (37.0-47.0); HEMOGLOBIN 10.6 gm/dL (12.0-15.0); MCH 31.9 pg (26.0-34.0); MPV 6.5 fl. (7.2-11.1); RBC 3.33 mil/uL (4.20-5.00); WBC 4.5 thou/uL (4.0-11.0)
[2019-08-20 08:03] LABS: CALCIUM 9.1 mg/dL (8.5-10.1); CREATININE 0.8 mg/dL (0.6-1.3); POTASSIUM 3.3 mmol/L (3.5-5.1)
[2019-08-20 08:09] LABS: ALBUMIN 3.1 g/dL (3.4-5.0); TOTAL BILIRUBIN 0.4 mg/dL (<0.1-1.0); TOTAL PROTEIN 5.8 g/dL (6.4-8.2)
--- NOTE | 2019-08-23 18:06 | PATH ---
[address] [address] PATHOLOGY RPT PROCEDURE Name: BESSY SCHWARTZ Room: [facility].#: [id number] Admission: 08/20/19 Date of : 49 Discharge: Report #: [id number] Path Case #: [id number] [facility] Accession Number: [id number] . 01 Material submitted: . PART A: breast - RIGHT BREAST MASS. Modifiers: right PART B: axillary tail of breast - RIGHT AXILLARY FAT PAD. Modifiers: right . 01 Clinical history: . Infiltrating ductal carcinoma of right breast . 02 Diagnosis: A. Right breast mass: - RESIDUAL DUCTAL ADENOCARCINOMA, HIGH-GRADE, WITH LARGEST SINGLE CONTIGUOUS SPAN OF 16 MM BUT WITH EXTENSIVE DISCONTINUOUS SPAN OF 34 MM IN ASSOCIATION WITH CHANGES OF PRIOR BIOPSY AND CHANGES ATTRIBUTABLE TO THERAPY INCLUDING FIBROSIS, CALCIFICATIONS AND HISTIOCYTIC INFILTRATE, WITH FOCAL INVOLVEMENT OF POSTERIOR MARGIN, ANTERIOR MARGIN, AND INFERIOR MARGIN. . B. Right axillary fat pad: - FIVE LYMPH NODES WITH ONE SHOWING MICROMETASTASIS AND THREE SHOWING ISOLATED TUMOR CELLS AND EACH SHOWING EVIDENCE OF THERAPY. SEE COMMENT. (BERNIE:pit; 08/23/2019) QTP 08/23/2019 1707 Local . 02 Comment: Surgical Pathology Cancer Case Summary . Protocol posting date: June 2019 . INVASIVE CARCINOMA OF THE BREAST: Resection . Procedure ___ Other (specify): Wire localization lumpectomy . Specimen Laterality ___ Right . + Tumor Site + ___ Not specified . Tumor Size ___ Greatest dimension of largest invasive focus >1 mm: 16 mm (see comment) . Histologic Type ___ Invasive carcinoma of no special type (invasive ductal [place], [place] [address] PATHOLOGY RPT PROCEDURE Name: BESSY SCHWARTZN Room: [facility]#: [id number] Admission: 08/20/19 Date of : 49 Discharge: Report #: [id number] Path Case #: [id number] otherwise specified) . Histologic Grade . Glandular (Acinar)/Tubular Differentiation ___ Score 3 (<10% of tumor area forming glandular/tubular structures) . Nuclear Pleomorphism ___ Score 3 (vesicular nuclei, often with prominent nucleoli, exhibiting marked variation in size and shape, occasionally with very large and bizarre forms) . Mitotic Rate ___ Score 3 . Overall Grade ___ Grade 3 (scores of 8 or 9) . + Tumor Focality + ___ Multiple foci of invasive carcinoma + ___ Number of foci cannot be determined (see comment) . Ductal Carcinoma In Situ (DCIS) ___ Not identified Invasive Carcinoma Margins ___ Positive for invasive carcinoma ___ Anterior + Extent (specify): Unifocal ___ Posterior + Extent (specify): Unifocal ___ Inferior + Extent (specify): Unifocal . DCIS Margins ___ Not applicable (no DCIS in specimen) . Regional Lymph Nodes ___ Involved by tumor cells Number of Lymph Nodes with Micrometastases (>0.2 mm to 2 mm and/or >200 cells): 1 Number of Lymph Nodes with Isolated Tumor Cells (< or = to 0.2 mm or < or = to 200 cells): 3 Size of Largest Metastatic Deposit: 1 mm . Extranodal Extension ___ Not identified Total Number of Lymph Nodes Examined: 5 [place] [address] PATHOLOGY RPT PROCEDURE Name: BESSY SCHWARTZ Room: [facility]#: [id number] Admission: 08/20/19 Date of : 49 Discharge: Report #: [id number] Path Case #: [id number] Treatment Effect in the Breast ___ Probable or definite response to presurgical therapy in the invasive carcinoma . Treatment Effect in the Lymph Nodes ___ Probable or definite response to presurgical therapy in metastatic carcinoma . + Lymphovascular Invasion + ___ Present . + Dermal Lymphovascular Invasion + ___ No skin present . PATHOLOGIC STAGE CLASSIFICATION (pTNM, AJCC 8th EDITION) . TNM Descriptors ___ m (multiple foci of invasive carcinoma) ___ y (posttreatment) . Primary Tumor (pT) ___ pT1c:Tumor >10 mm but < or = to 20 mm in greatest dimension (see comment) Regional Lymph Nodes (pN) . ___ pN1mi:Micrometastases (approximately 200 cells, larger than 0.2 mm, but none larger than 2.0 mm) + Ancillary Studies + ___ Breast Biomarker Testing Performed on Previous Biopsy + Testing Performed on A1 . + Estrogen Receptor (ER) + ___ Positive 70% . + Progesterone Receptor (PgR) + ___ Positive 1% . + HER2 (by immunohistochemistry) + ___ Positive (Score 3+) . + ___ Ki-67 percentage of positive nuclei: 40% . + Microcalcifications + ___ Present in non-neoplastic tissue . + Clinical History + ___ Other (specify): Previous right breast mass 10:00, 2 cm from nipple biopsy showing ductal adenocarcinoma high-grade, spanning at least 13 mm as well as lymph node right axilla image guided biopsy showing high-grade [facility] [address] [place] [address] PATHOLOGY RPT PROCEDURE Name: NAMBESSY Room: [facility].#: [id number] Admission: 08/20/19 Date of : 49 Discharge: Report #: [id number] Path Case #: [id number] carcinoma typical of breast primary spanning at least 12 mm ([id number] A and B). The patient received neoadjuvant therapy beginning around March 24, 2019. . Determination of the contiguous size of the neoplasm is difficult for staging purposes (determined to be 16 mm) because tumor is identified in all blocks of tissues submitted from the lumpectomy (A1 through A12) with multiple scattered nests as well as single cells throughout. Focal involvement of the posterior and anterior margins spanning less than 1 mm is identified in A6 and of the posterior margin also in A7 and involvement of the inferior margin spanning less than 1 mm is seen in A10. Properly controlled immunohistochemical studies performed on blocks as follows support the diagnosis: A6 - Keratin Matheus positive in malignant cells A7 - Cytokeratin 7 positive in malignant cells A12 - Keratin AE1/AE3 positive in malignant cells . B1 - Keratin AE1/AE3 positive - highlighting isolated tumor cells (BERNIE:pit; 08/23/2019) . 02 Electronically signed: . Wyatt Huggins MD, Pathologist NPI- [id number] . 01 Gross description: . A. The specimen is received in formalin, labeled "Bessy Schwratz, right breast mass" and consists of a 15 g previously inked lumpectomy specimen. It measures 3.4 cm S-I, 3.0 cm A-P, and 2.0 cm L-M. The specimen is inked as follows: Inferior-blue, anterior-green, lateral-orange, medial-yellow, posterior-black, and superior-red. Protruding from the superior aspect is a metal localization wire. It is sectioned from superior to inferior into 12 slices revealing a white stellate mass grossly starting in slice 3 and extending to slice 9 measuring 2.5 x 1.0 x 0.8 cm. Present in the superior aspect is a metallic clip. The mass grossly approaches the posterior margin, is 1.5 cm from anterior, 0.3 cm lateral, 0.5 cm medial, greater than 0.5 cm superior, and greater than 0.9 cm inferior. The rest of the parenchyma consists of scattered fibrous tissue and extensive blue dye. No additional masses are identified. The specimen is entirely submitted from superior to inferior as follows: . A1: Slice 1 superior, perpendicular A2: Slice 2 A3: Slice 3 A4: Slice 4 A5: Slice 5 A6: Slice 6 A7: Slice 7 A8: Slice 8 A9: Slice 9 [place] [address] PATHOLOGY RPT PROCEDURE Name: BESSY SCHWARTZ Room: [facility]..#: [id number] Admission: 08/20/19 Date of : 49 Discharge: Report #: [id number] Path Case #: [id number] A10: Slice 10 A11: Slice 11 A12: Slice 12 inferior, perpendicular . The specimen was collected at 1:02 PM on 08/20/2019 and placed in formalin at 1:19 PM. The cold ischemic time is 19 minutes and the total formalin fixation time is greater than 6 hours but less than 72 hours. . B. The specimen is received in formalin, labeled "Bessy Schwartz, right axillary fat pad" and consists of a segment of yellow lobulated tissue measuring 5.8 x 4.8 x 1.2 cm. Present within are 5 lymph node candidates measuring between 0.3 cm and and 2.4 x 1.4 x 0.9 cm. The largest lymph node candidate is fat replaced showing fat necrosis. . B1: One lymph node, trisected B2: Bisected lymph node B3-B6: Lymph node candidate with fat necrosis B7: 2 intact lymph node candidates (SDY; 08/21/2019) SYU/SYU 08/22/2019 1628 Local . 02 Pathologist provided ICD-10: C50.911 . 02 CPT . 092095, Y74253, D25810 Specimen Comment: A courtesy copy of this report has been sent to [phone], [phone] Specimen Comment: [phone], Specimen Comment: Report sent to , and Performed at: [address] [facility] [address], [place], [place] [id number] MD Omar March MD Phone: [phone] Performed at: [address] [facility] [address] [address], [place], [place] [id number] MD Wyatt Huggins MD Phone: [phone]
--- NOTE | 2019-09-04 13:35 | OP ---
[address] [address] OPERATIVE REPORT Name: CAREY BROWNING Room: [facility].#: [id number] Admission: 08/20/19 Attend Phys: Emigdio Ortiz DO Discharge: Date of : 49 Report #: [id number] THIS REPORT FOR: //name// CC: Emigdio Blount DATE OF SERVICE: 08/20/2019 REFERRING PHYSICIANS: Dr. Blount and Dr. Kay Watson. PREOPERATIVE DIAGNOSIS: Right breast invasive ductal adenocarcinoma, status post neoadjuvant chemotherapy. POSTOPERATIVE DIAGNOSIS: Right breast invasive ductal adenocarcinoma, status post neoadjuvant chemotherapy. PROCEDURE: Right breast lumpectomy after wire localization and right axillary lymph node dissection. SURGEON: Emigdio Ortiz DO RESTAURANT CREW PERSON: Doreen Livingston DO, PGY-2, resident. ANESTHESIA: General endotracheal. ESTIMATED BLOOD LOSS: Less than 30 mL. COMPLICATIONS: None. DESCRIPTION OF PROCEDURE: After obtaining proper consents and discussing risks and complications with the patient, she was taken to the Radiology Department where she underwent wire localization of a right breast mass, which had been previously biopsied and also right axillary node, which had previously been biopsied as well. She was also taken to the nuclear medicine department and had a radioactive tracer injected around the periareolar region. She was then taken to the preoperative holding area where I reviewed her films. I also went and reviewed films with the radiologist as well. She was then taken to the operating room where she underwent general anesthesia. She was then prepped and draped in the usual sterile fashion. I also injected 5 mL of Lymphazurin blue dye in the periareolar region prior to surgery. I then made a small incision along the upper portion of the breast just above the areola where the wire entered the breast. This was carried down [place] [address] OPERATIVE REPORT Name: CAREY BROWNING Room: [facility].#: [id number] Admission: 08/20/19 Attend Phys: Emigdio Ortiz, DO Discharge: Date of : 49 Report #: [id number] subcutaneous tissue. The wire in this region was almost just underneath the subcutaneous tissue. I was able to sharply dissect using Metzenbaum scissors and electrocautery to maintain hemostasis around the guidewire and removed a segment of breast tissue along with the wire. I then placed this on the back table and used the vector marking system to paint the 6 margins. It was then sent to Radiology for confirmation that it contained the clip in the breast tissue. While we awaited that I then used the Neoprobe to attempt to identify the area of most uptake in the right axilla. In doing this, there was very little uptake in the axilla, there was quite a bit of uptake in the breast tissue itself, but very little in the axilla. In the area of most uptake, I did make a small incision. This was carried down through the skin into the subcutaneous tissue using electrocautery for hemostasis. Once through the skin and subcutaneous tissue, I again used the Neoprobe and again found very little uptake anywhere in the axilla. I extended the incision and continued exploring the axilla. We did identify the axillary fat pad. The guidewire which had been placed through a previously placed biopsy of a lymph node actually coursed through the body of the pectoralis major and minor muscles and then the J portion of that wire extended all the way back to the latissimus dorsi going through the axillary fat pad. I did attempt to identify a sentinel node. However, after quite a bit of time of not being able to identify any radioactive material within the axilla, I elected to perform axillary lymph node dissection. I removed the axillary fat pad all the way over to the chest wall extending up to the axillary vein and then posteriorly to the latissimus dorsi. I removed this along with the guidewire. I used clips to clip the small vessels going into this axillary fat pad. Once it was completely removed, we did send this to Radiology to determine if the lymph node, which had been biopsied was within this fat pad. The fat pad appeared to have no palpable lymph nodes when I examined it. Again after this was removed, I used the Neoprobe again to assure that there was no radioactive uptake within the axilla. Finding none, I then closed the deeper subcutaneous tissues of the axilla. We had also been told that and I visualized the x-ray from the breast specimen, which showed the clip in the center of the specimen. We closed the subcutaneous tissue of the breast tissue and both skin incisions were then closed using 4-0 Monocryl subcuticular stitches. Mastisol, Steri-Strips, sterile OpSite and pressure dressings were placed. The patient was awakened in the operating room and transported to recovery room in stable condition. <ELECTRONICALLY SIGNED> By: Emigdio Ortiz DO 09/04/19 1335 1508 [id number] Ortiz DO /nt
== END | disposition home or self-care (01) ==
LOC: M.SUR 06:58
PROVIDERS: Surgery
DX: C50.911 Malignant neoplasm of unspecified site of right female breast (principal); C77.3 Secondary and unspecified malignant neoplasm of axilla and upper limb lymph nodes; I10 Essential (primary) hypertension; Z98.890 Other specified postprocedural states; Z88.0 Allergy status to penicillin; Z79.899 Other long term (current) drug therapy; Z79.891 Long term (current) use of opiate analgesic

== ENCOUNTER 2019-10-09 06:08 | Observation (INO) | payer MEDICARE, OTHER ==
[2019-10-09] VITALS (10 sets, daily range): BP systolic 114–138; BP diastolic 58–70
[~2019-10-09] VITALS: Ht 152.4 cm; Wt 65.3 kg
--- NOTE | ~2019-10-09 | OP ---
[address] [address] OPERATIVE REPORT Name: CAREY BROWNING Room: [address] Yvan Paz#: [id number] Admission: 10/09/19 Attend Phys: Emigdio Ortiz DO Discharge: 10/09/19 Date of : 49 Report #: [id number] THIS REPORT FOR: //name// CC: Emigdio Colbert MD DICTATED BY: Doreen Livingston DO DATE OF SERVICE: 10/09/2019 Doreen Livingston DO, PGY2 dictating operative report for Emigdio Ortiz DO. PREOPERATIVE DIAGNOSIS: Infiltrating ductal carcinoma of the right breast. POSTOPERATIVE DIAGNOSIS: Infiltrating ductal carcinoma of the right breast. SURGEON: Emigdio Ortiz DO. MEDICAL INSURANCE CLAIMS SPECIALIST: Doreen Livingston DO, PGY2. SECOND NETWORK DIAGNOSTIC SUPPORT SPECIALIST: ALEKSANDRA Maxwell. ANESTHESIA: General. ESTIMATED BLOOD LOSS: 20 mL. FINDINGS: Normal right breast anatomy. COMPLICATIONS: None. DRAIN: 15-Lithuanian JHON drain. INDICATIONS FOR PROCEDURE: The patient is a very pleasant 74-year-old female that was diagnosed with a right breast infiltrating ductal carcinoma. She initially underwent a right breast wire localized lumpectomy with an axillary josé miguel dissection when pathology returned 3/3 of the initial margins from the lumpectomy were positive. She also had evidence of micrometastasis in the lymph nodes that were retrieved during the axillary dissection. With these findings, she elected to rather than undergo further excision of the lumpectomy cavity, she elected to proceed with right breast simple mastectomy. The procedure, risks, benefits, possible complications to include bleeding, infection, wound healing issues, additional positive margins and need for additional surgery, risk of anesthesia, and other risks of surgery were discussed with the patient in great detail. She voiced complete understanding and [place] [address] OPERATIVE REPORT Name: SHAYNE BROWNINGSA GIPSON Room: [address] Yvan Paz#: [id number] Admission: 10/09/19 Attend Phys: Emigdio Ortiz DO Discharge: 10/09/19 Date of : 49 Report #: [id number] surgery. Informed consent was obtained. DESCRIPTION OF PROCEDURE: The patient was taken to the operating room and placed supine on the operating room table. General anesthesia was induced without difficulty. The patient's left arm was tucked at her side. Right arm was placed on an arm board and all pressure points were padded. The patient was prepped and draped in the standard sterile fashion. A timeout was performed to ensure correct patient and procedure. We began by making an elliptical incision to incorporate the nipple areolar complex, previous biopsy site as well as previous lumpectomy incision. Skin incision was carried down into the subcutaneous fat using electrocautery. Using traction and countertraction, the superior flap was dissected from the chest wall, medially to the sternal border, superiorly to the clavicle, laterally to the anterior border of the latissimus dorsi muscle and superolaterally to the insertion of the pectoralis major muscle. The lower flap was dissected in a similar fashion down to the insertion of the pectoralis fascia overlying the fifth rib medially and then laterally out to the latissimus dorsi. Electrocautery was used for the majority of the dissection as well as to ensure hemostasis. We continued in this fashion once we dissected down out to our borders. We then began to remove the breast from the pectoralis fascia. The breast was dissected away from the pectoralis muscle and fascia beginning medially, progressing laterally until the lateral border of the pectoralis major muscle was identified. The breast was completely removed. It was then marked with a short suture superiorly and a long suture laterally and passed off for permanent specimen. We then inspected the wound to ensure complete hemostasis, irrigated the wound with sterile water. A 15-Lithuanian JHON drain was inserted. This was secured in place using a 2-0 nylon suture. The subcutaneous tissue was then approximated using 2-0 Vicryl suture in a simple interrupted and inverted fashion. The skin was closed using 4-0 Monocryl suture in a running subcuticular fashion. The skin was cleansed and dried. Sterile dressing was applied using Mastisol, Steri-Strips, and a Tegaderm. A drain dressing was applied and a pressure dressing was applied over our incision using fluffs, ABD pads and an Gerhard wrap. The patient tolerated the procedure very well. She was allowed to awaken in the operating room and she was transferred to the PACU in stable condition. She will be admitted for observation and discharged home later today or tomorrow. By: 1021 [id number] Ashtyn Ortiz DO /yara
[~2019-10-09 06:08] MED LIST changes: +MAG-OXIDE400 MG PO
[2019-10-09 06:37] LABS: HEMATOCRIT 37.6 % (37.0-47.0); HEMOGLOBIN 12.5 gm/dL (12.0-15.0); MCH 29.9 pg (26.0-34.0); MCHC 33.3 g/dL (28.0-37.0); MCV 89.9 fL (80.0-100.0); MPV 6.8 fl. (7.2-11.1); RBC 4.18 mil/uL (4.20-5.00); RDW-CV 14.7 % (10.5-14.5); WBC 5.1 thou/uL (4.0-11.0)
[2019-10-09 06:41] LABS: CALCIUM 9.3 mg/dL (8.5-10.1); CREATININE 0.8 mg/dL (0.6-1.3); POTASSIUM 3.6 mmol/L (3.5-5.1)
[2019-10-09 06:46] LABS: ALBUMIN 3.3 g/dL (3.4-5.0); TOTAL BILIRUBIN 0.3 mg/dL (<0.1-1.0); TOTAL PROTEIN 6.2 g/dL (6.4-8.2)
--- NOTE | 2019-10-09 11:45 | NUR ---
ARRIVED TO UNIT ALERT AND ORIENTED X4. ORIENTED TO ROOM AND BED CONTROLS. FAMILY AT BEDSIDE. DENIED NEED FOR PAIN MEDICATION. DRESSING COVERED WITH [employer] DRY AND INTACT. NO C/O N/V. CALL LIGHT WITHIN REACH. BED ALARM ON.
--- NOTE | 2019-10-09 16:52 | NUR ---
ALERT AND ORIENTED X4. GIVEN PO PAIN MEDICATION FOR C/O HEADACHE AND HELPFUL. DRESSINGS ON CHEST CLEAN DRY AND INTACT WITHOUT ANY DRAINAGE NOTED ON DRESSING. RENZO WRAP INTACT OVER DRESSING. JHON DRAIN INTACT AND WORKING PROPERLY. REMAINS ON O2 AT 2L/NC WITH CAPNO IN PLACE. NO C/O NAUSEA. VOIDED WITHOUT DIFFICULTY. CALLLIGHT WITHIN REACH.
--- NOTE | 2019-10-09 18:53 | NUR ---
PATIENT AMBULATING TO BATHROOM AND VOIDING WITHOUT DIFFICULTY. DENIED NEED FOR PAIN MEDICATION FOR BREAST SURGERY. APPETITE GOOD WITH NO C/O N/V. DRESSING/RENZO WRAP CLEAN DRY AND INTACT. JHON DRAIN FUNCTIONING WITHOUT DIFFICULTY. PATIENT WAS GIVEN JHON DRAIN INSTRUCTIONS AND VERBALIZED UNDERSTANDING WITHOUT QUESTIONS.
--- NOTE | 2019-10-09 19:30 | NUR ---
PATIENT LEFT VIA W/C AT 1900 WITH FAMILY.
== END 2019-10-09 19:00 | disposition home or self-care (01) ==
LOC: M.TBA 06:08 → M.PRE 06:46 → M.ORTHSURG 11:23 → M.PRE 14:20 → M.ORTHSURG 19:00
PROVIDERS: ADMIT Surgery
DX: D05.11 Intraductal carcinoma in situ of right breast (principal); I10 Essential (primary) hypertension; M19.90 Unspecified osteoarthritis, unspecified site; E05.90 Thyrotoxicosis, unspecified without thyrotoxic crisis or storm; Z79.899 Other long term (current) drug therapy

== ENCOUNTER → 2019-10-29 | Outpatient (CLI) | payer MEDICARE, OTHER ==
--- NOTE | 2019-10-29 14:10 | 2DMMODE ---
[place] [address] 2 D/M-MODE ECHOCARDIOGRAM Name: CAREY BROWNING BRANDAN Room: [facility]#: [id number] Admission: 10/29/19 Attend Phys: Kay Watson MD Discharge: Date of : 49 Date of Service: 10/29/19 1409 Report #: [id number] THIS REPORT FOR: //name// APPROVED REPORT Study performed: 10/29/2019 13:00:33 EXAM: Comprehensive 2D, Doppler, and color-flow Echocardiogram Patient Location: Out-Patient BSA: 1.60 HR: 95 bpm BP: 120/78 mmHg Other Information Study Quality: Good Indications Breast Cancer 2D Dimensions IVSd: 12.35 (7-11mm) LVOT Diam: 20.11 (18-24mm) LVDd: 40.08 mm PWd: 10.84 (7-11mm) Ascending Ao: 31.93 (22-36mm) LVDs: 26.47 (25-40mm) Aortic Root: 29.12 mm Volumes Left Atrial Volume (Systole) LA ESV Index: 24.40 mL/m2 Aortic Valve AoV Peak Kwan.: 1.38 m/s AO Peak Gr.: 7.56 mmHg LVOT Max P.13 mmHg AO Mean Gr.: 4.24 mmHg LVOT Mean P.49 mmHg LVOT Max V: 0.88 m/s AO V2 VTI: 26.59 cm LVOT Mean V: 0.56 m/s JENNIFER (VTI): 2.09 cm2 LVOT V1 VTI: 17.50 cm Mitral Valve E/A Ratio: 0.69 MV Decel. Time: 229.99 ms MV E Max Kwan.: 0.70 m/s MV PHT: 66.70 ms MVA (PHT): 3.30 [place]2 [place] [address] 2 D/M-MODE ECHOCARDIOGRAM Name: CAREY BROWNINGN Room: [facility]#: [id number] Admission: 10/29/19 Attend Phys: Kay Watson MD Discharge: Date of : 49 Date of Service: 10/29/19 1409 Report #: [id number] TDI E/Lateral E': 6.36 E/Medial E': 8.75 Medial E' Kwan.: 0.08 m/s Lateral E' Kwan.: 0.11 m/s Pulmonary Valve PV Peak Kwan.: 0.92 m/s PV Peak Gr.: 3.41 mmHg Tricuspid Valve RAP Estimate: 5.00 mmHg TR Peak Gr.: 27.11 mmHg RVSP: 32.11 mmHg PA Pressure: 32.11 mmHg Left Ventricle The left ventricle is normal size. There is normal LV segmental wall motion. There is normal left ventricular wall thickness. Left ventricular systolic function is normal. The left ventricular ejection fraction is within the normal range. LVEF is 55-60%. Grade I - abnormal relaxation pattern. Right Ventricle The right ventricle is normal size. The right ventricular systolic function is normal. Atria The left atrium size is normal. The right atrium size is normal. Aortic Valve The aortic valve is normal in structure. No aortic regurgitation is present. There is no aortic valvular stenosis. Mitral Valve The mitral valve is normal in structure. Mild mitral regurgitation. No evidence of mitral valve stenosis. Tricuspid Valve The tricuspid valve is normal in structure. Mild tricuspid regurgitation. Pulmonic Valve The pulmonary valve is normal in structure. Mild pulmonic regurgitation[place] [address] 2 D/M-MODE ECHOCARDIOGRAM Name: CAREY BROWNING [id number] Admission: 10/29/19 Attend Phys: Kay Watson MD Discharge: Date of : 49 Date of Service: 10/29/19 1409 Report #: [id number] The aortic root is normal in size. IVC is normal in size and collapses >50% with inspiration. Pericardium There is no pericardial effusion. <Conclusion> LVEF is 55-60%. Mild mitral regurgitation. <ELECTRONICALLY SIGNED> By: Henri Shaw MD, FAC 10/29/19 1409 1409 1409 Henri Shaw MD, [facility] /INF
== END ==
LOC: M.CRD 12:51
DX: I08.8 Other rheumatic multiple valve diseases (principal); C50.411 Malignant neoplasm of upper-outer quadrant of right female breast; L98.9 Disorder of the skin and subcutaneous tissue, unspecified; Z79.899 Other long term (current) drug therapy

== ENCOUNTER → 2020-01-29 | Outpatient (CLI) | payer MEDICARE, OTHER ==
--- NOTE | 2020-01-29 14:52 | 2DMMODE ---
[facility] [address] [facility] [place] [address] 2 D/M-MODE ECHOCARDIOGRAM Name: CAREY RBOWNING Room: [employer]#: [id number] Admission: 01/29/20 Attend Phys: Kay Watson MD Discharge: Date of : 49 Date of Service: 01/29/20 1451 Report #: [id number] THIS REPORT FOR: cc: Hayley Blount MD, Tuongvan T. MD Liston, Michael J. MD [facility] ~ APPROVED REPORT Study performed: 01/29/2020 11:28:28 EXAM: Comprehensive 2D, Doppler, and color-flow Echocardiogram Patient Location: Out-Patient Status: routine BSA: 1.62 HR: 101 bpm BP: 130/70 mmHg Rhythm: NSR Other Information Study Quality: Good Indications Chemo Left Ventricle The left ventricle is normal size. There is normal LV segmental wall motion. There is normal left ventricular wall thickness. The left ventricular systolic function is normal. LVEF is 50-55%. Right Ventricle The right ventricle is normal size. The right ventricular systolic function is normal. Atria The left atrium size is normal. Aortic Valve The aortic valve is normal in structure. Mitral Valve The mitral valve is normal in structure. Tricuspid Valve [address] [place] [address] 2 D/M-MODE ECHOCARDIOGRAM Name: CAREY BROWNING Room: [facility]#: [id number] Admission: 01/29/20 Attend Phys: Kay Watson MD Discharge: Date of : 49 Date of Service: 01/29/201450 Report #: [id number] The tricuspid valve is normal in structure. Pulmonic Valve The pulmonary valve is normal in structure. Great Vessels The aortic root is normal in size. IVC is normal in size and collapses >50% with inspiration. Pericardium There is no pericardial effusion. <Conclusion> The left ventricle is normal size. There is normal left ventricular wall thickness. The left ventricular systolic function is normal. LVEF is 50-55%. There is normal LV segmental wall motion. IVC is normal in size and collapses >50% with inspiration. Global longitudinal strain was calculated to be -11.63% which would be considered to be mildly diminished. No prior longitudinal strain studies available for comparison. By visual comparison to prior echocardiogram there does not appear to be a significant decline in global ejection fraction. <ELECTRONICALLY SIGNED> By: Live Leyva MD, [facility] 01/29/201450 50 50 Live Leyva MD, FACC /INF
== END ==
LOC: M.CRD 01-25 10:00
DX: C50.411 Malignant neoplasm of upper-outer quadrant of right female breast (principal)

== ENCOUNTER → 2020-05-19 | Outpatient (CLI) | payer MEDICARE, OTHER ==
--- NOTE | 2020-05-19 10:48 | 2DMMODE ---
[place] [address] 2 D/M-MODE ECHOCARDIOGRAM Name: CAREY BROWNING Room: [facility]#: [id number] Admission: 05/19/20 Attend Phys: Kay Watson MD Discharge: Date of : 49 Date of Service: 05/19/20 1047 Report #: [id number] THIS REPORT FOR: cc: Hayley Blount MD, Tuongvan T. MD Holkins, John M. MD [facility] ~ APPROVED REPORT Study performed: 05/19/2020 09:51:54 EXAM: Comprehensive 2D, Doppler, and color-flow Echocardiogram BSA: 1.65 HR: 78 bpm BP: 136/80 mmHg Other Information Study Quality: Good Indications Chemo 2D Dimensions IVSd: 10.51 (7-11mm) LVOT Diam: 20.32 (18-24mm) LVDd: 47.19 mm PWd: 9.96 (7-11mm) Ascending Ao: 28.73 (22-36mm) LVDs: 37.68 (25-40mm) Aortic Root: 28.94 mm Volumes Left Atrial Volume (Systole) LA ESV Index: 21.30 mL/m2 Aortic Valve AoV Peak Kwan.: 1.11 m/s AO Peak Gr.: 4.95 mmHg LVOT Max P.71 mmHg AO Mean Gr.: 2.41 mmHg LVOT Mean P.35 mmHg LVOT Max V: 0.82 m/s AO V2 VTI: 21.00 cm LVOT Mean V: 0.54 m/s JENNIFER (VTI): 2.98 cm2 LVOT V1 VTI: 19.29 cm Mitral Valve E/A Ratio: 0.71 MV Decel. Time: 178.19 [place] [address] 2 D/M-MODE ECHOCARDIOGRAM Name: CAREY BROWNING Room: [facility]#: [id number] Admission: 05/19/20 Attend Phys: Kay Watson MD Discharge: Date of : 49 Date of Service: 05/19/20 1047 Report #: [id number] MV E Max Kwan.: 0.59 m/s MV PHT: 51.67 ms MVA (PHT): 4.26 cm2 TDI E/Lateral E': 7.38 E/Medial E': 8.43 Medial E' Kwan.: 0.07 m/s Lateral E' Kwan.: 0.08 m/s Pulmonary Valve PV Peak Kwan.: 0.79 m/s PV Peak Gr.: 2.51 mmHg Tricuspid Valve RAP Estimate: 5.00 mmHg TR Peak Gr.: 13.09 mmHg RVSP: 18.09 mmHg PA Pressure: 18.09 mmHg Left Ventricle The left ventricle is normal size. There is normal LV segmental wall motion. There is normal left ventricular wall thickness. Left ventricular systolic function is normal. The left ventricular ejection fraction is within the normal range. LVEF is 50-55%. Grade I - abnormal relaxation pattern. Right Ventricle The right ventricle is normal size. The right ventricular systolic function is normal. Atria The left atrium size is normal. The right atrium size is normal. Aortic Valve The aortic valve is normal in structure. No aortic regurgitation is present. There is no aortic valvular stenosis. Mitral Valve The mitral valve is normal in structure. Mild mitral regurgitation. No evidence of mitral valve stenosis. Tricuspid Valve The tricuspid valve is normal in structure. Trace to mild tricuspid regurgitation. Pulmonic Valve The pulmonary valve is normal in structure. [place] [address] 2 D/M-MODE ECHOCARDIOGRAM Name: CAREY BROWNING Room: [facility]#: [id number] Admission: 05/19/20 Attend Phys: Kay Watson MD Discharge: Date of : 49 Date of Service: 05/19/20 1047 Report #: [id number] regurgitation. Great Vessels The aortic root is normal in size. IVC is normal in size and collapses >50% with inspiration. Pericardium There is no pericardial effusion. <Conclusion> There is normal left ventricular wall thickness. Left ventricular systolic function is normal. The left ventricular ejection fraction is within the normal range. LVEF is 50-55%. Grade I - abnormal relaxation pattern. The right ventricle is normal size. The left atrium size is normal. The aortic valve is normal in structure. The mitral valve is normal in structure. Mild mitral regurgitation. The tricuspid valve is normal in structure. IVC is normal in size and collapses >50% with inspiration. There is no pericardial effusion. There is normal LV segmental wall motion. <ELECTRONICALLY SIGNED> By: Cristo Walker MD, [facility] 05/19/20 1047 1047 1047 Cristo Walker MD, FACC /INF
== END ==
LOC: M.CRD 09:00
PROVIDERS: ATTEND Internal Medicine Hematology & Oncology
DX: I08.8 Other rheumatic multiple valve diseases (principal); C50.411 Malignant neoplasm of upper-outer quadrant of right female breast

== ENCOUNTER → 2020-06-03 | Outpatient (CLI) | payer MEDICARE, OTHER | LOC: M.RAD 09:55 | PROVIDERS: ATTEND Internal Medicine Hematology & Oncology | DX: C50.411 Malignant neoplasm of upper-outer quadrant of right female breast (principal); M81.0 Age-related osteoporosis without current pathological fracture; M85.88 Other specified disorders of bone density and structure, other site; Z79.811 Long term (current) use of aromatase inhibitors ==

== ENCOUNTER → 2020-07-29 | Outpatient (CLI) | payer MEDICARE, OTHER | LOC: M.RAD 09:40 | PROVIDERS: ATTEND Radiology Radiation Oncology | DX: C50.411 Malignant neoplasm of upper-outer quadrant of right female breast (principal) ==

== ENCOUNTER → 2021-07-30 | Outpatient (CLI) | payer MEDICARE, OTHER | LOC: M.ULTRA 08-06 11:15 → M.RAD 09:24 | PROVIDERS: ATTEND Radiology Radiation Oncology | DX: Z12.31 Encounter for screening mammogram for malignant neoplasm of breast (principal); C50.411 Malignant neoplasm of upper-outer quadrant of right female breast; N63.21 Unspecified lump in the left breast, upper outer quadrant ==

== ENCOUNTER → 2021-08-04 | Outpatient (CLI) | payer MEDICARE, OTHER ==
--- NOTE | 2021-08-11 12:15 | PATH ---
[address] [address] PATHOLOGY RPT PROCEDURE Name: CAREY BROWNING Room: [facility].#: [id number] Admission: 08/04/21 Date of : 49 Discharge: Report #: [id number] Path Case #: [id number] Note [facility] Accession Number: [id number] TESTS RESULT FLAG UNITS REF RANGE LAB Clinician Provided Cytology Information No. of containers..01 Other (Miscellaneous) Source: ASPIRATION LT BREAST DIAGNOSIS: ASPIRATION LT BREAST NEGATIVE FOR MALIGNANT CELLS. COMMENT, MOSTLY CYST TYPE FLUID. DUCTAL CELLS NOT PRESENT SUGGEST CLINICAL AND RADIOLOGICAL CORRELATION THE MATERIAL ASPIRATED MAY NOT BE SURVEY INSTRUMENT OPERATOR. Signed out by: 01 Maverick Deras MD, Pathologist NPI- [id number] Performed by: Sandy Hughes, Sales Representative Door To Door ([facility]) Gross description: 01 >1ML, RED /LCS 08/06/2021 1618 Local FLAG LEGEND: L-Low Normal,H-High Normal,LL-Alert Low,HH-Alert High <-Panic Low,>-Panic High,A-Abnormal,AA-Critical Abnormal Performed at: [address] [address] Maverick Deras MD, Specimen Comment: A duplicate report has been generated due to demographic updates. Performed at: [address] [id number] MD Maverick Deras MD Phone: [phone]
== END | disposition home or self-care (01) ==
LOC: M.ULTRA 12:24
PROVIDERS: ATTEND Radiology Radiation Oncology
DX: N60.02 Solitary cyst of left breast (principal)